=== PATIENT | male | born 2000 | race Native Hawaiian/Other Pacific Islander ===

== ENCOUNTER 2020-01-16 09:52 | Emergency (ER) | payer SELFPAY ==
[2020-01-16 09:56] VITALS: BP 144/75
[2020-01-16] MEDS ORDERED: ACETAMINOPHEN 325 MG TAB PO ONE (09:56)
[2020-01-16] MEDS ORDERED: ACETAMINOPHEN 325 MG TAB ONE (09:58)
--- NOTE | 2020-01-16 11:11 | XRay Report ---
CHEST 2 VIEWS INDICATION / CLINICAL INFORMATION: fever malaise. COMPARISON: None available. FINDINGS: SUPPORT DEVICES: None. HEART / MEDIASTINUM: No significant abnormality. LUNGS / PLEURA: Ill-defined patchy opacities in both lower lungs are more prominent in the right lowe r lobe but suggest pneumonia. No pneumothorax. ADDITIONAL FINDINGS: No significant additional findings. IMPRESSION: 1. Multifocal airspace disease. Signer Name: Mack Grier MD Signed: 01/16/2020 11:07 AM Workstation Name: [id number]
[2020-01-16] MEDS ORDERED: ONDANSETRON 4 MG/2 ML INJ IV ONE (11:31)
[2020-01-16] MEDS ORDERED: SODIUM CHLORIDE 0.9% 1000 ML 1,000 ML IV ONE (11:31)
[2020-01-16] MEDS ORDERED: HYOSCYAMINE SUBL 0.125 MG TAB SL ONE (11:31)
[2020-01-16 11:33] LABS: Basophils % (Auto) 0.4 % (0.0-1.8); Hematocrit 45.4 % (35.5-45.6); Hemoglobin 15.5 gm/dl (11.8-15.2); Lymphocytes # (Auto) 0.9 K/mm3 (1.2-5.4); Lymphocytes % (Auto) 16.8 % (13.4-35.0); Mean Corpuscular HGB Conc 34 % (32-34); Mean Corpuscular Volume 90 fl (84-94); Monocytes # (Auto) 0.3 K/mm3 (0.0-0.8); Monocytes % (Auto) 6.1 % (0.0-7.3); Platelet Count 162 K/mm3 (140-440); Red Blood Count 5.05 M/mm3 (3.65-5.03)
[2020-01-16 11:51] LABS: Alanine Aminotransferase 63 units/L (7-56); Albumin 4.2 g/dL (3.9-5); BUN/Creatinine Ratio 12; Blood Urea Nitrogen 11 mg/dL (9-20); Calcium 8.9 mg/dL (8.4-10.2); Hemolysis Index 7
--- NOTE | 2020-01-16 12:57 | Emergency Department Report ---
ED General Adult HPI - General Chief complaint: Nausea/Vomiting/Diarrhea Stated complaint: UPSET STOMACH,CHILLS,NAUSEA Time Seen by Provider: 01/16/20 11:18 Source: patient Mode of arrival: Ambulatory Limitations: No Limitations - History of Present Illness Initial comments: Patient is a 19-year-old male who presents emergency room with complaints of na usea and diarrhea that began 2 days ago. He states he has had multiple episodes of diarrhea. Patient denies any vomiting, abdominal pain, cough, shortness of breath, chest pain, sore throat, ear pain, swelling in the legs, hematochezia, melena. He states he has a past medical history of childhood asthma and has not had any issues with asthma since he was 9 years old. He denies any known sick contacts, he denies any contact with COVID positive patient, he is a non-smoker. 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 Severity scale (0 -10): 2 - Related Data Previous Rx's Medication Instructions Recorded Last Taken Type Amoxicillin/Potassium Clav 1 each PO BID 7 Days #14 tablet 01/16/20 Unknown Rx [Augmentin 875-125 Tablet] Azithromycin [Zithromax Z-CLARISSA] 250 mg PO DAILY 5 Days #6 tablet 01/16/20 Unknown Rx Hyoscyamine Subl [Levsin Sl 0.125 0.125 mg SL Q6HR PRN #7 tab 01/16/20 Unknown Rx TAB] Promethazine [Phenergan] 25 mg PO Q8HR PRN #10 tab 01/16/20 Unknown Rx Allergies Allergy/AdvReac Type Severity Reaction Status Date / Time No Known Allergies Allergy Unverified 01/16/20 09:52 ED Review of Systems ROS: Stated complaint: UPSET STOMACH,CHILLS,NAUSEA Other details as noted in HPI Comment: All other systems reviewed and negative ED Past Medical Hx - Past Medical History Previous Medical History?: Yes Hx Asthma: Yes (as a child) - Surgical History Past Surgical History?: No - Social History Smoking Status: Never Smoker Substance Use Type: None - Medications Home Medications: Home Medications Medication Instructions Recorded Confirmed Last Taken Type Amoxicillin/Potassium Clav 1 each PO BID 7 Days #14 tablet 01/16/20 Unknown Rx [Augmentin 875-125 Tablet] Azithromycin [Zithromax Z-CLARISSA] 250 mg PO DAILY 5 Days #6 tablet 01/16/20 Unknown Rx Hyoscyamine Subl [Levsin Sl 0.125 0.125 mg SL Q6HR PRN #7 tab 01/16/20 Unknown Rx TAB] Promethazine [Phenergan] 25 mg PO Q8HR PRN #10 tab 01/16/20 Unknown Rx ED Physical Exam - General Limitations: No Limitations General appearance: alert, in no apparent distress - Head Head exam: Present: atraumatic, normocephalic - Eye Eye exam: Present: normal appearance - ENT ENT exam: Present: mucous membranes moist - Respiratory Respiratory exam: Present: normal lung sounds bilaterally. Absent: respiratory distress, wheezes, rales, rhonchi, stridor, chest wall tenderness, accessory muscle use, decreased breath sounds, prolonged expiratory - Cardiovascular Cardiovascular Exam: Present: regular rate, normal rhythm, normal heart sounds. Absent: systolic murmur, diastolic murmur, rubs, gallop - GI/Abdominal GI/Abdominal exam: Present: soft, normal bowel sounds. Absent: distended, tenderness, guarding, rebound, rigid - Neurological Exam Neurological exam: Present: alert, oriented X3 - Psychiatric Psychiatric exam: Present: normal affect, normal mood - Skin Skin exam: Present: warm, dry, intact ED Course Vital Signs 01/16/20 01/16/20 01/16/20 09:52 13:27 13:41 Temperature 101.6 F H 100.1 F H Pulse Rate 102 H 84 Respiratory 18 16 Rate Blood Pressure 144/75 O2 Sat by Pulse 96 100 Oximetry ED Medical Decision Making - Lab Data Result diagrams: 01/16/20 11:11 01/16/20 11:11 Lab Results 01/16/20 01/16/20 01/16/20 Range/Units 11:11 11:11 11:11 WBC 5.2 (4.5-11.0) K/mm3 RBC 5.05 H (3.65-5.03) M/mm3 Hgb 15.5 H (11.8-15.2) gm/dl Hct 45.4 (35.5-45.6) % MCV 90 (84-94) fl MCH 31 (28-32) pg MCHC 34 (32-34) % RDW 13.0 L (13.2-15.2) % Plt Count 162 (140-440) K/mm3 Lymph % (Auto) 16.8 (13.4-35.0) % [place] % (Auto) 6.1 (0.0-7.3) % Eos % (Auto) 0.0 (0.0-4.3) % Baso % (Auto) 0.4 (0.0-1.8) % Lymph # 0.9 L (1.2-5.4) K/mm3 [place] # 0.3 (0.0-0.8) K/mm3 Eos # 0.0 (0.0-0.4) K/mm3 Baso # 0.0 (0.0-0.1) K/mm3 Seg Neutrophils % 76.7 H (40.0-70.0) % Seg Neutrophils # 4.0 (1.8-7.7) K/mm3 Sodium 136 L (137-145) mmol/L Potassium 4.2 (3.6-5.0) mmol/L Chloride 99.7 (98-107) mmol/L Carbon Dioxide 23 (22-30) mmol/L Anion Gap 18 mmol/L BUN 11 (9-20) mg/dL Creatinine 0.9 (0.8-1.5) mg/dL Estimated GFR > 60 ml/min BUN/Creatinine Ratio 12 % Glucose 132 H (75-100) mg/dL Lactic Acid 1.10 (0.7-2.0) mmol/L Calcium 8.9 (8.4-10.2) mg/dL Total Bilirubin 0.30 (0.1-1.2) mg/dL AST 46 H (5-40) units/L ALT 63 H (7-56) units/L Alkaline Phosphatase 62 (35-129) units/L Total Protein 8.1 (6.3-8.2) g/dL Albumin 4.2 (3.9-5) g/dL Albumin/Globulin Ratio 1.1 % Lipase (13-60) units/L 05/04/20 Range/Units 11:26 WBC (4.5-11.0) K/mm3 RBC (3.65-5.03) M/mm3 Hgb (11.8-15.2) gm/dl Hct (35.5-45.6) % MCV (84-94) fl MCH (28-32) pg MCHC (32-34) % RDW (13.2-15.2) % Plt Count (140-440) K/mm3 Lymph % (Auto) (13.4-35.0) % [place] % (Auto) (0.0-7.3) % Eos % (Auto) (0.0-4.3) % Baso % (Auto) (0.0-1.8) % Lymph # (1.2-5.4) K/mm3 [place] # (0.0-0.8) K/mm3 Eos # (0.0-0.4) K/mm3 Baso # (0.0-0.1) K/mm3 Seg Neutrophils % (40.0-70.0) % Seg Neutrophils # (1.8-7.7) K/mm3 Sodium (137-145) mmol/L Potassium (3.6-5.0) mmol/L Chloride (98-107) mmol/L Carbon Dioxide (22-30) mmol/L Anion Gap mmol/L BUN (9-20) mg/dL Creatinine (0.8-1.5) mg/dL Estimated GFR ml/min BUN/Creatinine Ratio % Glucose (75-100) mg/dL Lactic Acid (0.7-2.0) mmol/L Calcium (8.4-10.2) mg/dL Total Bilirubin (0.1-1.2) mg/dL AST (5-40) units/L ALT (7-56) units/L Alkaline Phosphatase (35-129) units/L Total Protein (6.3-8.2) g/dL Albumin (3.9-5) g/dL Albumin/Globulin Ratio % Lipase 39 (13-60) units/L - Radiology Data Radiology results: report reviewed CHEST 2 VIEWS INDICATION / CLINICAL INFORMATION: fever malaise. COMPARISON: None available. FINDINGS: SUPPORT DEVICES: None. HEART / MEDIASTINUM: No significant abnormality. LUNGS / PLEURA: Ill-defined patchy opacities in both lower lungs are more prominent in the right lower lobe but suggest pneumonia. No pneumothorax. ADDITIONAL FINDINGS: No significant additional findings. IMPRESSION: 1. Multifocal airspace disease. Signer Name: Mack Grier MD Signed: 01/16/2020 11:07 AM Workstation Name: [id number] Transcribed By: OBED Dictated By: Mack Grier MD Electronically Authenticated By: Mack Grier MD Signed Date/Time: 01/16/20 110 DD/ 1106 TD/TT: - Medical Decision Making Patient is a 19-year-old male who presents emergency room with complaints of nausea and diarrhea that began 2 days ago. He states he has had multiple episodes of diarrhea. Patient denies any vomiting, abdominal pain, cough, shortness of breath, chest pain, sore throat, ear pain, swelling in the legs, hematochezia, melena. He states he has a past medical history of childhood asthma and has not had any issues with asthma since he was 9 years old. He denies any known sick contacts, he denies any contact with COVID positive patient, he is a non-smoker. 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 Initial vitals with fever and tachycardia which improved upon repeat. No abnormality on physical exam as documented in chart. Labs with mild elevation of ALT and AST and glucose, otherwise stable. CXR: 1. Multifocal airspace disease. X-ray appears most likely consistent with a COVID-19 infe ction. patient given Tylenol, Zofran, Levsin, 1 L IV fluids and symptoms resolved and he was feeling much better. Patient was able to tolerate p.o. intake without difficulty. Patient was ambulated in the emergency department for 2 minutes and maintained sats at 100% on room air. Patient has no known medical problems, he is not hypoxic, patient will be instructed on self quarantine and discussed in detail strict return precautions. Patient given prescription for Augmentin, azithromycin, Zofran, Levsin. Advised patient Please take medication as prescribed. Increase your fluid intake over the next several days. Please take Tylenol as needed for fever. Please follow-up with a primary care doctor for reexamination. Please self quarantine for 2 weeks. Please do not go out in public. If you are around others at home please wear a mask. If you need to cough or sneeze please do so in a napkin and throw it away and wash your hands immediately. Wash your hands frequently. Wipe everything down that you have touch. Return to the emergency room immediately or call 911 if began experiencing any new or worsening symptoms including but not limited to chest pain, shortness of breath, difficulty breathing, unable to tolerate by mouth intake, etc. Critical care attestation.: If time is entered above; I have spent that time in minutes in the direct care of this critically ill patient, excluding procedure time. ED Disposition Clinical Impression: Nausea, Suspected 2019 novel coronavirus infection, Multifocal pneumonia, Elevated LFTs Diarrhea Qualifiers: Diarrhea type: unspecified type Qualified Code(s): R19.7 - Diarrhea, unspecified Disposition: DC-01 TO HOME OR SELFCARE Is pt being admited?: No Does the pt Need Aspirin: No Condition: Stable Instructions: COVID-19, Community-acquired Pneumonia (ED) Additional Instructions: Please take medication as prescribed. Increase your fluid intake over the next several days. Please take Tylenol as needed for fever. Please follow-up with a primary care doctor for reexamination. Please self quarantine for 2 weeks. Please do not go out in public. If you are around others at home please wear a mask. If you need to cough or sneeze please do so in a napkin and throw it away and wash your hands immediately. Wash your hands frequently. Wipe everything down that you have touch. Return to the emergency room immediately or call 911 if began experiencing any new or worsening symptoms including but not limited to chest pain, shortness of breath, difficulty breathing, unable to tolerate by mouth intake, etc. Prescriptions: Amoxicillin/Potassium Clav [Augmentin 875-125 Tablet] 1 each PO BID 7 Days #14 tablet Hyoscyamine Subl [Levsin Sl 0.125 TAB] 0.125 mg SL Q6HR PRN #7 tab PRN Reason: abdominal cramping Promethazine [Phenergan] 25 mg PO Q8HR PRN #10 tab PRN Reason: Nausea Azithromycin [Zithromax Z-CLARISSA] 250 mg PO DAILY 5 Days #6 tablet Referrals: SHANE CABRAL MD [Staff Physician] - 3-5 Days [facility] [Provider Group] - 3-5 Days [facility] [Outside] - 3-5 Days [facility] [Outside] - 3-5 Days Forms: Work/School Release Form(ED) Time of Disposition: 13:43 Print Language: HUNGARIAN
== END 2020-01-16 14:03 | disposition home or self-care (01) ==
LOC: ED 09:52
DX: J18.8 Other pneumonia, unspecified organism (principal); R11.0 Nausea; R79.89 Other specified abnormal findings of blood chemistry; R19.7 Diarrhea, unspecified; Z20.828 Contact with and (suspected) exposure to other viral communicable diseases; Z79.2 Long term (current) use of antibiotics; Z79.899 Other long term (current) drug therapy
CPT/HCPCS: 36415; 71046; 80053; 82140; 83690; 85025; 87040; 96361; 96374; 99284; J2405; J7030